=== PATIENT | female | born 1985 | race African-American/Black ===

== ENCOUNTER 2018-02-06 11:11 | Emergency (ER) | payer OTHER ==
[2018-02-06 12:02] LABS: HEMATOCRIT 28.9 % (36.0-47.0); HEMOGLOBIN 9.6 g/dl (12.0-15.5); MEAN CORPUSCULAR HEMOGLOBIN 24.8 pg (27.0-33.0); MEAN CORPUSCULAR HGB CONC 33.2 g/dl (32.0-36.5); MEAN CORPUSCULAR VOLUME 74.7 fl (80.0-96.0); PLATELET COUNT, AUTOMATED 155 10^3/uL (150-450); RED BLOOD COUNT 3.87 10^6/uL (4.00-5.40); RED CELL DISTRIBUTION WIDTH 14.1 % (11.5-14.5); WHITE BLOOD COUNT 7.6 10^3/uL (4.0-10.0)
== END 2018-02-06 12:41 | disposition home or self-care (01) ==
LOC: M ED 11:11
DX: O99.89 Other specified diseases and conditions complicating pregnancy, childbirth and the puerperium (principal); R42 Dizziness and giddiness; Z3A.31 31 weeks gestation of pregnancy
CPT/HCPCS: 93005

== ENCOUNTER 2018-02-23 05:24 | Outpatient (CLI) | payer OTHER ==
[2018-02-23 06:45] LABS: HEMATOCRIT 27.1 % (36.0-47.0); HEMOGLOBIN 9.1 g/dl (12.0-15.5); MEAN CORPUSCULAR HEMOGLOBIN 24.1 pg (27.0-33.0); MEAN CORPUSCULAR HGB CONC 33.6 g/dl (32.0-36.5); MEAN CORPUSCULAR VOLUME 71.7 fl (80.0-96.0); PLATELET COUNT, AUTOMATED 163 10^3/uL (150-450); RED BLOOD COUNT 3.78 10^6/uL (4.00-5.40); RED CELL DISTRIBUTION WIDTH 14.2 % (11.5-14.5); WHITE BLOOD COUNT 6.3 10^3/uL (4.0-10.0)
[2018-02-23 06:54] LABS: INR 1.05; PROTHROMBIN TIME 13.8 SECONDS (12.1-14.4)
[2018-02-23 06:55] LABS: FIBRINOGEN 455 MG/DL (221-452); PARTIAL THROMBOPLASTIN TIME 28.1 SECONDS (25.4-37.6)
== END 2018-02-23 07:34 | disposition home or self-care (01) ==
LOC: M LDO 05:24
DX: O99.89 Other specified diseases and conditions complicating pregnancy, childbirth and the puerperium (principal); Z3A.33 33 weeks gestation of pregnancy; W19.XXXA Unspecified fall, initial encounter; O99.013 Anemia complicating pregnancy, third trimester
CPT/HCPCS: 76815

== ENCOUNTER 2018-04-18 12:59 | Emergency (ER) | payer OTHER ==
[2018-04-18] MEDS: METOCLOPRAMIDE INJ 10MG/2ML VIAL (J2765) IV (14:00)
[2018-04-18] MEDS: diphenhydrAMINE INJ 50MG/ML VIAL (J1200) IV (14:01)
== END 2018-04-18 14:36 | disposition admitted as inpatient to this hospital (09) ==
LOC: M ED 12:59
DX: O99.89 Other specified diseases and conditions complicating pregnancy, childbirth and the puerperium (principal); R51 Headache; Z3A.41 41 weeks gestation of pregnancy; D57.3 Sickle-cell trait
CPT/HCPCS: J1200

== ENCOUNTER 2018-04-18 14:43 | Outpatient (CLI) | payer OTHER | END 2018-04-18 16:05 | disposition home or self-care (01) | LOC: M LDO 14:43 | DX: O26.893 Other specified pregnancy related conditions, third trimester (principal); R51 Headache; Z3A.40 40 weeks gestation of pregnancy ==

== ENCOUNTER 2018-04-21 01:46 | Inpatient (IN) | payer OTHER ==
[2018-04-21 02:54] LABS: HEMATOCRIT 29.8 % (36.0-47.0); HEMOGLOBIN 9.5 g/dl (12.0-15.5); MEAN CORPUSCULAR HEMOGLOBIN 21.8 pg (27.0-33.0); MEAN CORPUSCULAR HGB CONC 31.9 g/dl (32.0-36.5); MEAN CORPUSCULAR VOLUME 68.5 fl (80.0-96.0); PLATELET COUNT, AUTOMATED 243 10^3/uL (150-450); RED BLOOD COUNT 4.35 10^6/uL (4.00-5.40); RED CELL DISTRIBUTION WIDTH 17.5 % (11.5-14.5); WHITE BLOOD COUNT 8.5 10^3/uL (4.0-10.0)
[2018-04-21] MEDS ORDERED: FENTANYL 2MCG/ML ROPIVACAINE 0.2% IN 0.9% NACL 200ML IVBAG As Ordered (03:25)
[2018-04-21] MEDS: LACTATED RINGER'S 1000 ML IV (03:35)
[2018-04-21] MEDS ORDERED: ONDANSETRON 4MG/2ML VIAL (J2405) IV ×2 (03:41→10:00)
[2018-04-21] MEDS ORDERED: EPIDURAL/PCA KEYS XX (03:41)
[2018-04-21] MEDS ORDERED: diphenhydrAMINE INJ 50MG/ML VIAL (J1200) IV (03:41)
[2018-04-21] MEDS ORDERED: NALOXONE INJ 0.4 MG/1 ML VIAL (J2310) IV (03:41)
[2018-04-21] MEDS: FENTANYL/ROPIVACAINE/NACL BAG 200 ML EPIDURAL (03:41)
[2018-04-21] MEDS ORDERED: REFRIGERATOR IV KEYS XX (03:41)
[2018-04-21] MEDS ORDERED: LACTATED RINGER'S 1000 ML IV (03:41)
[2018-04-21] MEDS ORDERED: ePHEDrine SULFATE 25 MG/5 ML(5MG/ML) SYRINGE IV (03:41)
[2018-04-21] MEDS ORDERED: EPIDURAL COMMENT XX (03:41)
[2018-04-21] MEDS ORDERED: LR 1,000 ML IV (06:17)
[2018-04-21] MEDS: OXYTOCIN DRIP 30 UNITS in APPROPRIATE DILUENT 1 EA IV ×2 (06:37→09:52)
[2018-04-21] MEDS: LR 1,000 ML IV (07:41)
[2018-04-21] MEDS: PRENATAL VITAMINS CHEWABLE TABLET PO (09:00)
[2018-04-21] MEDS ORDERED: DOCUSATE SODIUM 100 MG CAP PO (10:00)
[2018-04-21] MEDS ORDERED: DIBUCAINE 1% OINTMENT 30GM TOP (10:00)
[2018-04-21] MEDS ORDERED: PROMETHAZINE 25 MG TAB PO (10:00)
[2018-04-21] MEDS ORDERED: [UNRECOGNIZED DRUG - OTHER] SC (10:00)
[2018-04-21] MEDS: IBUPROFEN 800 MG TAB PO (14:57)
[2018-04-21] MEDS: ACETAMINOPHEN 500 MG TAB PO (21:36)
[2018-04-22] MEDS: FERROUS SULFATE 325MG TAB PO (07:53)
[2018-04-22] MEDS: PRENATAL VITAMINS CHEWABLE TABLET PO (07:53)
[2018-04-22] MEDS ORDERED: PRENATAL VITAMINS CHEWABLE TABLET PO (09:00)
== END 2018-04-22 13:00 | disposition home or self-care (01) | DRG 807 ==
LOC: M LDO 01:46 → M LDI 02:09 → M OBS 13:41
PROVIDERS: Obstetrics & Gynecology
PROC: 10E0XZZ Delivery of Products of Conception, External Approach (ICD-10-PCS; principal; 2018-04-21)
PROC: 0HQ9XZZ Repair Perineum Skin, External Approach (ICD-10-PCS; 2018-04-21)
DX: O48.0 Post-term pregnancy (principal); Z37.0 Single live birth; Z3A.41 41 weeks gestation of pregnancy; O99.02 Anemia complicating childbirth; D64.9 Anemia, unspecified; O70.0 First degree perineal laceration during delivery

== ENCOUNTER 2018-08-30 07:05 | Emergency (ER) | payer OTHER ==
[~2018-08-30] VITALS: Ht 167.6 cm; Wt 86.8 kg
[~2018-08-30 07:05] MED LIST: ACET1TAB55 PO; COLA100C5 PO; DIBU1OIN TOP; FERR325T3 PO; FOLI1TAB11 PO; IBUP-1114 PO; IRON65TA PO; MAPA500T2 PO; MOTR200T44 PO; PRENTAB40 PO; VITA500C24 PO
--- NOTE | 2018-08-30 08:24 | REP ---
Clinical: Trauma . Technique: AP, lateral, bilateral oblique, and coned-down views. Findings: Alignment and lordosis is maintained. The vertebral bodies including transverse process and spinous processes are intact and normal. There is no evidence for acute fracture / compression injury or subluxation. No evidence for spondylolysis or spondylolisthesis. No significant degenerative change is noted. Impression: Normal lumbosacral spine radiograph series. No obvious fracture including no obvious spinous process fracture. Electronically Signed by José Blood MD 08/30/2018 08:16 A
--- NOTE | 2018-08-30 08:27 | REP ---
Clinical: Trauma. Technique: AP, lateral, open mouth views of the cervical spine Findings: Alignment is maintained. No acute fracture / compression injury or subluxation. Surrounding soft tissues are normal. Impression: Normal examination. No acute fracture or subluxation. Electronically Signed by José Blood MD 08/30/2018 08:19 A
[2018-08-30 08:38] VITALS: BP 108/55
== END 2018-08-30 08:39 | disposition home or self-care (01) ==
LOC: M ED 07:05
DX: M54.9 Dorsalgia, unspecified (principal); M54.2 Cervicalgia; W10.9XXA Fall (on) (from) unspecified stairs and steps, initial encounter; Y92.099 Unspecified place in other non-institutional residence as the place of occurrence of the external cause; Y93.9 Activity, unspecified; Y99.9 Unspecified external cause status